=== PATIENT | female | born 1970 | race American Indian/Alaskan Native ===

== ENCOUNTER 2018-02-23 07:55 | Day surgery (SDC) | payer MEDICARE ==
[~2018-02-23 07:55] MED LIST: NACL 0.9% 1000 ML 1,000 ML IV SCH; VANCOMYCIN/NS 1 GM/250 ML 1 GM/250 ML BAG IV NR
[2018-02-23 09:14] LABS: Hematocrit 40.5 % (30.3-42.9); Hemoglobin 13.2 gm/dl (10.1-14.3); Mean Corpuscular HGB Conc 33 % (30-34); Mean Corpuscular Hemoglobin 30 pg (28-32); Mean Corpuscular Volume 93 fl (79-97); Platelet Count 256 K/mm3 (140-440); Red Blood Count 4.36 M/mm3 (3.65-5.03); Red Cell Distribution Width 12.6 % (13.2-15.2)
[2018-02-23 09:25] LABS: BUN/Creatinine Ratio 15; Blood Urea Nitrogen 9 mg/dL (7-17); Calcium 8.9 mg/dL (8.4-10.2); Hemolysis Index 2
[2018-02-23 09:27] LABS: INR 0.93 (0.87-1.13)
[2018-02-23 09:28] LABS: Partial Thromboplastin Time 31.3 Sec. (24.2-36.6)
[2018-02-23] MEDS ORDERED: HEPARIN/NS 5000 UNIT/500ML(CATH LAB) 1,000 ML IR ONE (09:37)
[2018-02-23] MEDS ORDERED: LEVAQUIN 500MG/100ML 500 MG/100 ML BAG IV ONE (09:38)
[2018-02-23] MEDS ORDERED: NACL 0.9% 500 ML 500 ML ONE (09:39)
[2018-02-23 09:51] LABS: Basophils % (Manual) 0 % (0.0-1.8); Platelet Estimate Cons; RBC Morphology Normal; Total Cells Counted 100
[2018-02-23] MEDS: SUBLIMAZE ONE ×7 (10:10→11:27)
[2018-02-23] MEDS: VERSED ONE ×8 (10:10→11:42)
[2018-02-23] MEDS: XYLOCAINE 2% INFILTRATI ONE ×2 (10:16→10:18)
[2018-02-23] MEDS: HEPARIN 10,000 UNITS/10 ML ONE ×2 (10:37→11:27)
--- NOTE | 2018-02-23 12:17 | Operative Report ---
Operative Report Operative Report: Operative note: Date: 02/23/2018 Preoperative diagnosis: Bilateral venous insufficiency with external elliptical reflux Postoperative diagnosis: Same. Operation: Bilateral iliac venogram. Bilateral femoral vein access under continuous ultrasound guidance. Intravascular ultrasound of bilateral common femoral vein, external and common iliac veins. Bilateral common and external iliac balloon angioplasty with Bard Lutonix DCBs 12 x 40 on the left and 10 x 60 on the right. Placement of bilateral Wallstents 16x 90 on the left and 18 x 90 on the right. Surgeon: Jerrica Duarte. Asst.: None Anesthesia: Moderate sedation EBL: Minimal Findings: There was about 60% narrowing of right external iliac vein, 70-80% diffuse narrowing of left common iliac and external iliac veins Indications: 48-year-old female came complaining of bilateral recurrence of proximity swelling. The patient had previous symptoms that improved after bilateral great saphenous vein ablations about 2 years ago. She underwent venous reflux ultrasound that showed bilateral common femoral and right external iliac reflux. She was discussed risks, benefits and alternatives of performing a venogram with possible balloon angioplasty and possible placement of stents. She understood and agreed, signed informed consent. Operative details: Patient was brought to the [facility] Operator and placed in supine frog leg position. Her upper medial thighs and groins were prepped and draped in sterile fashion. Timeout was performed. Right femoral vein was accessed with micropuncture needle after injection of local anesthetic, micropuncture wire was advanced and small brenda incision performed. Needle was achieved to micropuncture sheath followed by changed to a 5 Dutch access sheath. Same steps were repeated at the left side. Venogram was performed showing iliac stenosis bilaterally. I advanced [place]ana wire into IVC on the right side and exchanged the 5 Dutch sheath 28 Dutch. I advanced the J-wire on the left side and upsized to 8 Dutch sheath also. Next, intravascular ultrasound of right side starting from common femoral vein, followed by external iliac and common iliac vein going into IVC. The risks proximal and distal external iliac stenosis. I performed same steps on the left side also starting from common femoral vein and going to external iliac, common iliac veins and IVC. There were proximal common iliac, distal common iliac and external iliac stenosis diffusely. I initially tried balloon angioplasty was drug-coated balloon 12 mm on the right side and 10 mm on the left side and postdilated that was 14 mm XXL balloon. On post angioplasty intravascular ultrasound there was no improvement in the stenosis. At this point I decided to deploy bilateral stents. I deployed a 16 mm x 90 Wallstent on the left and postdilated that with 14 mm XXL balloon. Then, I deployed 18 x 90 mm stent on the right side and postdilated that was 60 mm XXL balloon. After stent deployment intravascular ultrasound showed good lumen without residual stenosis. At this point all guidewires removed and sheaths pulled and manual pressure held During procedure patient was heparinized with 2000 units before angioplasty and followed by 1000 and 2000 during procedure. Patient tolerated procedure well.
--- NOTE | 2018-02-23 12:21 | Short Stay Summary ---
Short Stay Documentation Date of service: 02/23/18 - History H&P: obtained from office - Allergies and Medications Current Medications: Allergies morphine Allergy (Unverified 05/25/15 13:28) Rash Penicillins Allergy (Unverified 05/25/15 13:28) Rash vancomycin Allergy (Unverified 02/23/18 07:55) Rash Home Medications Medication Instructions Recorded Confirmed Last Taken Type ALBUTEROL Inhaler(NF) 2 puff INHALATION DAILY PRN 02/23/18 02/23/18 01/25/18 History 2 Diazepam 5 mg PO BID 02/23/18 02/23/18 02/22/18 History 2000 Estradiol [Estrace] 1 mg PO DAILY 02/23/18 02/23/18 02/22/18 History 1mg Lisinopril/Hydrochlorothiazide 20 - 25 mg PO DAILY 02/23/18 02/23/18 02/22/18 History [Zestoretic 10-12.5 mg Tablet] 1 tab Omeprazole 40 mg PO DAILY 02/23/18 02/23/18 02/22/18 History 40mg tiZANidine [Zanaflex] 2 mg PO BID 02/23/18 02/23/18 02/22/18 History 2mg traMADol [Ultram 50 MG tab] 50 mg PO Q6HR PRN 02/23/18 02/23/18 02/21/18 History 50mg Active Medications Sodium Chloride (Nacl 0.9% 1000 Ml) 1,000 mls @ 42 mls/hr IV DIRECT AQUILINO - Brief post op/procedure progress note Date of procedure: 02/23/18 Pre-op diagnosis: bilateral lower extremity edema, venous insufficiency with EI reflux Post-op diagnosis: same Procedure: Bilateral iliac venogram. Bilateral femoral vein access under continuous ultrasound guidance. Intravascular ultrasound of bilateral common femoral vein, external and common iliac veins. Bilateral common and external iliac balloon angioplasty with Bard Lutonix DCBs 12 x 40 on the left and 10 x 60 on the right. Placement of bilateral Wallstents 16x 90 on the left and 18 x 90 on the right. Findings: There was about 60% narrowing of right external iliac vein, 70-80% diffuse narrowing of left common iliac and external iliac veins Surgeon: FRANCISCO LEROY Estimated blood loss: minimal Pathology: none Condition: stable - Disposition Condition at discharge: Good Disposition: DC-01 TO HOME OR SELFCARE Short Stay Discharge Plan Activity: other (no driving while taking pain medications) Diet: regular Follow up with: PETRA GAMEZ MD [Primary Care Provider] - 7 Days FRANCISCO LEROY DO [Staff Physician] - 14 Days Prescriptions: Apixaban [Eliquis] 2.5 mg PO BID #60 tablet HYDROcodone/APAP 7.5-325 [[place] 7.5/325] 1 each PO Q4H #30 tablet
[2018-02-23] MEDS ORDERED: NORCO 5/325 ONE (12:28)
[2018-02-23] MEDS ORDERED: NORCO 5/325 PO PRN (12:30)
[2018-02-23] MEDS ORDERED: NORCO 7.5/325 PO PRN (12:30)
[2018-02-23 16:24] VITALS: BP 138/77
== END 2018-02-23 17:00 | disposition home or self-care (01) ==
LOC: CATHLABREC 07:55
PROVIDERS: ATTEND Surgery Vascular Surgery
DX: I87.2 Venous insufficiency (chronic) (peripheral) (principal); I10 Essential (primary) hypertension; Z88.5 Allergy status to narcotic agent; Z88.1 Allergy status to other antibiotic agents; Z88.2 Allergy status to sulfonamides; Z79.01 Long term (current) use of anticoagulants
CPT/HCPCS: 36415; 37238; 37239; 37252; 37253; 76937; 80048; 85007; 85025; 85610; 85730; 99156; 99157; C1725; C1753; C1769; C1876; J1644; J1956; J2250; J3010; J7040; 37248; 37249; Q9967